=== PATIENT | male | born 1995 | race Caucasian/White ===

== ENCOUNTER 2023-11-29 15:14 | Observation (INO) ==
[2023-11-29 17:43] VITALS: BMI 32.6
[2023-11-29] MEDS: NS 1,000 ML IV 1,000 ML IV SCH (19:09)
--- NOTE | 2023-11-29 19:11 | EKG ---
Test Reason : SOB Blood Pressure : */* mmHG Vent. Rate : 71 BPM Atrial Rate : 71 BPM P-R Int : 162 ms QRS Dur : 84 ms QT Int : 410 ms P-R-T Axes : 34 58 40 degrees QTc Int : 445 ms Normal sinus rhythm with sinus arrhythmia Normal ECG When compared with ECG of 27-NOV-2023 15:40, No significant change was found Confirmed by Jimmy Montaño MD ([id number]) on 11/30/2023 7:40:11 AM Referred By: Confirmed By: Jimmy Montaño MD
[2023-11-29 19:16] LABS: BASOPHILS # (AUTO) 0.1 X10^3/uL (0.0-0.1); BASOPHILS % (AUTO) 0.6 % (0.2-1.0); EOSINOPHILS # (AUTO) 0.3 x10^3/uL (0.0-0.2); HEMATOCRIT 46.1 % (42.0-54.0); HEMOGLOBIN 15.7 g/dL (13.5-18.0); LYMPHOCYTES # (AUTO) 2.6 X10^3/uL (1.3-2.9); LYMPHOCYTES % (AUTO) 31.1 % (21.0-51.0); MEAN CORPUSCULAR HEMOGLOBIN 28.4 pg (27.0-34.0); MEAN CORPUSCULAR HGB CONC 34.1 g/dL (33.0-35.0); MEAN CORPUSCULAR VOLUME 83.3 fL (80.0-100.0); MEAN PLATELET VOLUME 7.4 fL (7.4-11.0); MONOCYTES # (AUTO) 0.6 x10^3/uL (0.3-0.8); NEUTROPHILS # (AUTO) 4.8 x10^3/uL (2.2-4.8); NEUTROPHILS % (AUTO) 57.3 % (42.0-75.0); PLATELET COUNT 268 X10^3/uL (150.0-450.0); RED BLOOD COUNT 5.54 X10^6/uL (4.7-6.0); RED CELL DISTRIBUTION WIDTH 12.9 % (11.6-16.5); WHITE BLOOD COUNT 8.5 X10^3/uL (3.6-10.0)
[2023-11-29 19:33] LABS: ALANINE AMINOTRANSFERASE 43 Units/L (12-78); ALBUMIN 4.2 g/dL (3.4-5.0); ALKALINE PHOSPHATASE 68 Units/L (46-116); ASPARTATE AMINO TRANSFERASE 20 Units/L (15-37); BLOOD UREA NITROGEN 19 mg/dL (7-18); CALCIUM 9.1 mg/dL (8.5-10.1); CARBON DIOXIDE 25.5 mmol/L (21-32); CHLORIDE 104 mmol/L (98-107); CREATINE KINASE 175 Units/L (39-308); CREATININE 1.15 mg/dL (0.70-1.30); GLUCOSE 92 mg/dL (65-99); POTASSIUM 3.5 mmol/L (3.5-5.1); SODIUM 141 mmol/L (136-145); TOTAL PROTEIN 7.8 g/dL (6.4-8.2); eGFR NON BLACK RACES > 60 (>60)
--- NOTE | 2023-11-29 20:36 | RAD ---
EXAM: CHEST HISTORY: SOB; COMPARISON: November 27, 2023. TECHNIQUE: Frontal view of the chest was submitted for interpretation. FINDINGS: The cardiomediastinal silhouette is within normal limits. Lungs show no focal consolidation, pneumot horax, or pleural fluid. IMPRESSION: No acute cardiopulmonary process. THIS IS AN ELECTRONICALLY VERIFIED FINAL REPORT 11/29/2023 8:32 PM - Electronically signed by Nadeem Pappas MD
[2023-11-29] MEDS: LIPITOR TAB 20 MG PO SCH (20:42)
[2023-11-29] MEDS: MAG-OX TAB PO SCH (20:42)
[2023-11-29] MEDS: K-DUR TAB 20 MEQ PO ONE (20:42)
--- NOTE | 2023-11-29 23:29 | EKG ---
Test Reason : SOB Blood Pressure : */* mmHG Vent. Rate : 74 BPM Atrial Rate : 74 BPM P-R Int : 152 ms QRS Dur : 94 ms QT Int : 400 ms P-R-T Axes : 30 62 34 degrees QTc Int : 444 ms Normal sinus rhythm Normal ECG When compared with ECG of 29-NOV-2023 18:56, (Unconfirmed) No significant change was found Confirmed by Jimmy Montaño MD ([id number]) on 11/30/2023 7:39:28 AM Referred By: Confirmed By: Jimmy Montaño MD
[2023-11-30 03:15] LABS: BASOPHILS # (AUTO) 0.1 X10^3/uL (0.0-0.1); BASOPHILS % (AUTO) 0.9 % (0.2-1.0); EOSINOPHILS # (AUTO) 0.2 x10^3/uL (0.0-0.2); EOSINOPHILS % (AUTO) 2.6 % (0.9-2.9); HEMATOCRIT 44.4 % (42.0-54.0); HEMOGLOBIN 15.2 g/dL (13.5-18.0); LYMPHOCYTES # (AUTO) 1.8 X10^3/uL (1.3-2.9); LYMPHOCYTES % (AUTO) 20.9 % (21.0-51.0); MEAN CORPUSCULAR HEMOGLOBIN 28.3 pg (27.0-34.0); MEAN CORPUSCULAR HGB CONC 34.3 g/dL (33.0-35.0); MEAN CORPUSCULAR VOLUME 82.6 fL (80.0-100.0); MEAN PLATELET VOLUME 7.2 fL (7.4-11.0); MONOCYTES # (AUTO) 0.6 x10^3/uL (0.3-0.8); MONOCYTES % (AUTO) 6.4 % (0.0-13.0); NEUTROPHILS % (AUTO) 69.2 % (42.0-75.0); PLATELET COUNT 260 X10^3/uL (150.0-450.0); RED BLOOD COUNT 5.38 X10^6/uL (4.7-6.0); WHITE BLOOD COUNT 8.7 X10^3/uL (3.6-10.0)
[2023-11-30 03:29] LABS: ALANINE AMINOTRANSFERASE 38 Units/L (12-78); ALBUMIN 3.7 g/dL (3.4-5.0); ALKALINE PHOSPHATASE 63 Units/L (46-116); ASPARTATE AMINO TRANSFERASE 18 Units/L (15-37); BLOOD UREA NITROGEN 18 mg/dL (7-18); CALCIUM 8.6 mg/dL (8.5-10.1); CARBON DIOXIDE 27.8 mmol/L (21-32); CHLORIDE 107 mmol/L (98-107); CREATINE KINASE 150 Units/L (39-308); CREATININE 1.09 mg/dL (0.70-1.30); GLUCOSE 103 mg/dL (65-99); POTASSIUM 4.3 mmol/L (3.5-5.1); SODIUM 142 mmol/L (136-145); TOTAL PROTEIN 7.1 g/dL (6.4-8.2); eGFR NON BLACK RACES > 60 (>60)
[2023-11-30] MEDS ORDERED: CONSULT PHARMACY - POTASSIUM & MAGNESIUM XX SCH (07:00)
[2023-11-30] MEDS: CONSULT PHARMACY - POTASSIUM & MAGNESIUM XX SCH (08:30)
[2023-11-30] MEDS: MAG-OX TAB PO SCH (08:43)
--- NOTE | 2023-11-30 08:52 | CT ---
EXAM:BRAIN W/O CONHISTORY:DIZZINESS, WEAKNESS;COMPARISON:No relevant prior studies were available for comparison at the time of interpretation..TECHNIQUE:CT images were obtained. Multiplanar reconstructions were created on a separate workstation and used during interpretation. All CT scans at this facility is dose modulation, iterative reconstruction, and/or weight-based dosing as appropriate to reduce radiation to levels as low as reasonably achievable (ALARA). Postprocessing details, radiation dose, and contrast dose (if applicable) are recorded in the patient's medical record.FINDINGS:Acute findings: There is no intracranial hemorrhage. No mass effect. No intra-axial or extra-axial fluid collection. There is no mass. No tentorial, uncal, or tonsillar herniation.Brain volume and white matter: Brain volume and attenuation is normal for age.Ventricles: No hydrocephalusMidline structures: Pituitary gland and corpus callosum are normal.Posterior fossa and skull base: Cerebellum and posterior fossa are within normal limits. Basal cisterns are not effaced.Sinuses and mastoids: Paranasal sinuses and mastoid air cells are predominantly clear.Globes and Orbits: Globes are intact. Bony orbits are intact. Orbital contents are unremarkable.Skull and soft tissues: No depressed skull fracture. Calvarium appears intact. No scalp injury is identified.IMPRESSION:1. No acute intracranial abnormalityTHIS IS AN ELECTRONICALLY VERIFIED FINAL REPORT11/30/2023 8:48 AM - Electronically signed by Milo Antonio MD
[2023-11-30] MEDS: K-DUR TAB 20 MEQ PO SCH (09:39)
[2023-11-30] MEDS: CARAFATE PO SCH (09:52)
[2023-11-30] MEDS: PROTONIX TAB 40 MG PO SCH (09:52)
[2023-11-30 09:54] VITALS: BP 131/76; PULSE 77; RESP 17; TEMP 98.1; O2SAT 98
--- NOTE | 2023-11-30 10:40 | DR.CARTERS ---
Short Stay Summary - Admission Date Date of Admission: 11/29/23 - Discharge Date Discharge Date: 11/30/23 - Admission Diagnoses (1) Tachycardia Status: Acute (2) Dizziness Status: Acute (3) Shortness of breath Status: Acute (4) Epigastric pain Status: Acute (5) Fatigue Status: Acute (6) GERD (gastroesophageal reflux disease) Status: Acute - Hospital Course Vitals: Vital Signs Temperature 98.1 F 11/30/23 08:00 Temperature 98.0 F 11/30/23 04:00 Pulse Rate [Bilateral Radial] 75 11/30/23 06:00 Pulse Rate [Bilateral Radial] 80 11/30/23 05:00 Pulse Rate [Bilateral Radial] 74 11/30/23 04:00 Pulse Rate [Bilateral Radial] 64 11/30/23 03:00 Pulse Rate 77 11/30/23 09:00 Pulse Rate 64 11/30/23 08:00 Pulse Rate 75 11/30/23 07:00 Pulse Rate 74 11/30/23 06:00 Pulse Rate 69 11/30/23 05:00 Pulse Rate 85 11/30/23 04:33 Pulse Rate 74 11/30/23 04:00 Pulse Rate 64 11/30/23 03:00 Respiratory Rate 17 11/30/23 09:00 Respiratory Rate 19 11/30/23 08:00 Respiratory Rate 9 11/30/23 07:00 Respiratory Rate 18 11/30/23 06:00 Respiratory Rate 20 11/30/23 06:00 Respiratory Rate 14 11/30/23 05:00 Respiratory Rate 16 11/30/23 05:00 Respiratory Rate 15 11/30/23 04:33 Respiratory Rate 20 11/30/23 04:00 Respiratory Rate 16 11/30/23 04:00 Respiratory Rate 14 11/30/23 03:00 Respiratory Rate 14 11/30/23 03:00 Blood Pressure [Left Arm] 123/64 11/30/23 06:00 Blood Pressure [Left Arm] 133/72 11/30/23 05:00 Blood Pressure [Left Arm] 124/68 11/30/23 04:00 Blood Pressure [Left Arm] 121/72 11/30/23 03:00 Blood Pressure 131/76 11/30/23 09:00 Blood Pressure 131/76 11/30/23 09:00 Blood Pressure 134/65 11/30/23 08:00 Blood Pressure 130/69 11/30/23 07:00 Blood Pressure 123/64 11/30/23 06:00 Blood Pressure 133/72 11/30/23 05:00 Blood Pressure 136/76 11/30/23 04:33 Blood Pressure 124/68 11/30/23 04:00 Blood Pressure 121/72 11/30/23 03:00 - Discharge Medications Discharge Medications: Home Medication List Gi Cocktail 10 ml PO QID #400 mL 11/30/23 [Rx] pantoprazole 40 mg tablet,delayed release 40 mg PO BID #60 tabs 11/30/23 [Rx] Prescriptions: Gi Cocktail Juan Pennington pantoprazole Juan Pennington - Hospital Course Hospital Course: WAS A DIRECT ADMISSION TO THE HOSPITAL FOR EVALUATION AND TREATMENT OF TACHYCARDIA, DIZZINESS, SHORTNESS OF BREATH, AND WEAKNESS. ADDITIONALLY, PATIENT COMPLAINED OF EPIGASTRIC PAIN, FATIGUE, AND EXCESSIVE DAYTIME SLEEPINESS. HE ADMITS TO OFTEN AWAKENING FROM SLEEP WITH SHORTNESS OF BREATH. HE WAS SEEN IN THE ER ON 11/27 AND WAS DIAGNOSED WITH HYPONATREMIA AND HYPOKALEMIA. SHE WAS GIVEN TWO BAGS OF IV FLUIDS AT THAT TIME AND WAS DISCHARGED HOME. PATIENT REPORTS THAT HE WAS FEELING BETTER, BUT BEGAN HAVING AN EPISODE OF TACHYCARDIA AGAIN PRIOR TO ADMISSION. HIS MEDICAL HX INCLUDES: GERD. ON ARRIVAL, HIS VITALS WERE: 98.1-73-22-98%-129/78. LABS WERE OBTAINED. WBC 8.5, RBC 5.54, HGB 15.7, HCT 46.1, PLT COUNT 268, SODIUM 141, POTASSIUM 3.5, CHLORIDE 104, BUN 19, CREATININE 1.15, GLUCOSE 92, CALCIUM 9.1, MAGNESIUM 1.8, TOTAL BILI 0.70, AST 20, ALT 43, ALK PHOS 68, CREATINE KINASE 175, TROPONIN 4.6, TOTAL PROTEIN 7.8, ALBUMIN 4.2. A CHEST XRAY WAS OBTAINED AND REVEALED: NO ACUTE CARDIOPULMONARY PROCESS. EKG WAS OBTAINED AND REVEALED: NORMAL SINUS RHYTHM WITH SINUS ARRHYTHMIA. HR 71 BPM. ON ADMISSION, HE WAS STARTED ON NORMAL SALINE AT 125 ML/HR, LIPITOR 20MG HS, PROTONIX 40MG DAILY, SUCRALFATE 1G QID, AND POTASSIUM CHLORIDE 20MEQ PO DAILY. REPEAT SERIAL CARDIAC ENZYMES WERE NORMAL AND NO CHANGES WERE NOTED TO EKGs. OTHERWISE, WE PLANNED TO FOLLOW-UP WITH AM LABS AND CONTINUE TO MONITOR. ON THE MORNING FOLLOWING ADMISSION, PATIENT IS ALERT AND ORIENTED, SITTING UP IN BED. HE DENIES CURRENT COMPLAINTS. HE HAS NOT HAD ANY EPISODES OF TACHYCARDIA OR HYPOXIA SINCE ADMISSION. ON EXAMINATION, HEART IS REGULAR IN RATE AND RHYTHM. BILATERAL LUNGS ARE CLEAR TO AUSCULTATION. ABDOMEN IS ROUND, SOFT, AND NON- TENDER WITH NORMAL BOWEL SOUNDS NOTED IN ALL QUADRANTS. GOOD RANGE OF MOTION NOTED TO UPPER AND LOWER EXTREMITIES WITH NO EDEMA NOTED. HIS VITALS THIS MORNING ARE: 98.1-64-19-98%-131/76. LABS WERE OBTAINED. WBC 8.7, RBC 5.38, HGB 15.2, HCT 44.4, PLT COUNT 260, SODIUM 142, POTASSIUM 4.3, CHLORIDE 1074, CARBON DIOXIDE 27.8, BUN 18, CREATININE 1.09, GLUCOSE 103, CALCIUM 8.6, MAGNESIUM 1.8, AST 18, ALT 38, ALK PHOS 63, CREATINE KINASE 150, TROPONIN 4.8, TOTAL PROTEIN 7.1, ALBUMIN 3.7. A BRAIN CT WAS OBTAINED THIS MORNING AND REVEALED: 1. NO ACUTE INTRACRANIAL ABNORMALITY. WE PLANNED FOR DISCHARGE. INSTRUCTIONS FOR MEDICATIONS AND FOLLOW-UP WERE DISCUSSED WITH PATIENT AND HIS SPOUSE. THEY VERBALIZED UNDERSTANDING OF ORDERS. HE WAS GIVEN RX FOR PROTONIX BID, GI COCKTAIL 10ML QID. WE WILL REFER PATIENT TO , HUMAN RESOURCES OFFICE ASSISTANT FOR ECHO AND STRESS TEST. WE WILL REFER HIM TO FOR A GI WORK-UP. WE WILL ALSO OBTAIN A SLEEP STUDY TO RULE OUT SLEEP APNEA. PATIENT IS ADVISED TO FOLLOW-UP IN THE OFFICE IN 1 WEEK. HE WAS DISCHARGED HOME WITH HIS SPOUSE IN STABLE CONDITION. TIME SPENT ON CLINICAL ASSESSMENT, REVIEWING LABS AND IMAGING, DECISION MAKING, DISCHARGE INSTRUCTIONS, PREPARING DISCHARGE PAPERS, AND DOCUMENTATION GREATER THAN 75 MINUTES. - Discharge Plan Disposition: HOME, SELF-CARE Condition: Stable Prescriptions: Gi Cocktail 10 ml PO QID #400 mL pantoprazole 40 mg PO BID #60 tabs - Follow up/Referrals Follow up/Referrals: GONZALO VARGAS [Primary Care Provider] - 1 WEEK Jose Antonio Moreno [STAFF PHYSICIAN] - 1 WEEK RICHIE RIVAS [STAFF PHYSICIAN] - 1 WEEK - Instructions Additional Instructions: DIET TOLERATED. ACTIVITY TOLERATED. Forms: Excuse From Work or School, Post Hospital Follow Up Care
--- NOTE | 2023-11-30 12:20 | VAS ---
EXAM: CAROTID US HISTORY: TACHYCARDIA - COMPARISON: None. TECHNIQUE: Multiple carlson scale and color flow Doppler images of the right and left carotid arterial system were obtained with waveform analysis using NASCET criteria. The vertebral arterial system was evaluated as well. FINDINGS: Two dimensional ultrasound reveals no significant plaque. The right and left vertebral arteries demon strate antegrade flow. Right ICA peak systolic velocity is 51 cm/sec. Right systolic ratio is 0.6. Left ICA peak systolic velocity is 56 cm/sec. Left systolic ratio is 0.7. IMPRESSION: No hemodynamically significant stenosis is seen in the regions of the carotid bifurcations. THIS IS AN ELECTRONICALLY VERIFIED FINAL REPORT 11/30/2023 12:17 PM - Electronically signed by Jerrell Michaels MD
== END 2023-11-30 12:00 | disposition home or self-care (01) ==
LOC: ICU
PROVIDERS: ADMIT Internal Medicine; ATTEND Internal Medicine
DX: R06.02 Shortness of breath; E86.0 Dehydration; E87.1 Hypo-osmolality and hyponatremia; R00.0 Tachycardia, unspecified; R07.89 Other chest pain; E83.42 Hypomagnesemia; E87.6 Hypokalemia; K21.9 Gastro-esophageal reflux disease without esophagitis; R10.13 Epigastric pain; R53.1 Weakness; R55 Syncope and collapse; R53.83 Other fatigue; E78.5 Hyperlipidemia, unspecified; R42 Dizziness and giddiness